=== PATIENT | female | born 2005 | race American Indian/Alaskan Native ===

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

== ENCOUNTER 2024-04-02 06:34 | Day surgery (SDC) | payer OTHER ==
[~2024-04-02 06:34] MED LIST: Midazolam 1 MG/ML 2 ML SDV IV ONE; Midazolam 1 MG/ML 2 ML SDV ONE; fentaNYL 100 MCG/2 ML SDV IV ONE; fentaNYL 100 MCG/2 ML SDV ONE
[2024-04-02] MEDS: Sodium Chloride 0.9% 500 ML IV SCH (07:03)
[2024-04-02] MEDS: fentaNYL 100 MCG/2 ML SDV IV ONE ×2 (07:32→07:33)
[2024-04-02] MEDS: Midazolam 1 MG/ML 2 ML SDV IV ONE ×2 (07:33→07:34)
[2024-04-02 09:56] VITALS: BP 132/51; PULSE 55
== END 2024-04-02 09:19 | disposition home or self-care (01) ==
LOC: DL.ENDO 06:34 → MERGE 06:34 → DL.ENDO 09:19
PROVIDERS: ATTEND Internal Medicine Gastroenterology
DX: K29.50 Unspecified chronic gastritis without bleeding (principal); B96.81 Helicobacter pylori [H. pylori] as the cause of diseases classified elsewhere; F41.8 Other specified anxiety disorders
CPT/HCPCS: 43239; J2250; J3010; J7040

== ENCOUNTER 2024-04-20 11:38 | Emergency (ER) | payer OTHER ==
[2024-04-20] MEDS: Dexamethasone 4 MG/ML SDV IVPUSH ONE (11:58)
[2024-04-20] MEDS: Dexamethasone 4 MG/ML SDV PO ONE (12:01)
[2024-04-20] MEDS: Lidocaine 2% Viscous Solution 15 ML UD PO ONE (12:02)
[2024-04-20 12:28] VITALS: BP 138/74; PULSE 97
== END 2024-04-20 12:30 | disposition home or self-care (01) ==
LOC: DL.ED 11:38
DX: J02.0 Streptococcal pharyngitis (principal); Z79.899 Other long term (current) drug therapy; Z79.811 Long term (current) use of aromatase inhibitors; Z79.890 Hormone replacement therapy
CPT/HCPCS: 99283; A9270; J1100